=== PATIENT | female | born 1955 | race Caucasian/White ===

== ENCOUNTER 2023-12-11 13:43 | Emergency (ER) | payer OTHER ==
[~2023-12-11] VITALS: Ht 167.6 cm; Wt 68.0 kg
[2023-12-11 13:51] VITALS: BP 110/61; PULSE 86; RESP 18; TEMP 98.5; O2SAT 95
[2023-12-11 15:58] LABS: BASOPHILS # (AUTO) 0.1 K/uL (0.00-0.22); BASOPHILS % (AUTO) 0.6 % (0.0-2.0); EOSINOPHILS # (AUTO) 0.2 K/uL (0-0.4); EOSINOPHILS % (AUTO) 2.3 % (0.0-4.0); HEMATOCRIT 29.8 % (36-48); HEMOGLOBIN 10.1 g/dL (12.0-16.0); LYMPHOCYTES # (AUTO) 2.1 K/uL (2.5-16.5); MEAN CORPUSCULAR HEMOGLOBIN 32 pg (27-31); MEAN CORPUSCULAR HGB CONC 34 g/dL (33-37); MEAN CORPUSCULAR VOLUME 93.5 fL (80-94); MONOCYTES # (AUTO) 1.5 K/uL (0.8-1.0); MONOCYTES % (AUTO) 14.9 % (1.7-9.3); NEUTROPHILS # (AUTO) 6.2 K/uL (1.8-7.7); NEUTROPHILS % (AUTO) 61.2 % (42.2-75.2); PLATELET COUNT (AUTO) 247 K/uL (140-450); RED BLOOD CELL COUNT(AUTO) 3.19 MIL/uL (4.20-5.40); RED CELL DISTRIBUTION WIDTH 16.1 % (11.6-13.7); WHITE BLOOD COUNT (AUTO) 10.1 K/uL (4.8-10.8)
[2023-12-11 16:07] LABS: ANION GAP 12.6 (8-16); CALCIUM 8.8 mg/dL (8.5-10.1); CARBON DIOXIDE 22.2 mmol/L (21-32); CREATININE 1.2 mg/dL (0.6-1.3); POTASSIUM 3.8 mmol/L (3.5-5.1)
[2023-12-11 16:09] LABS: INR 1.01 (0.8-1.2); PARTIAL THROMBOPLASTIN TIME 31.5 secs (22-35.6); PROTHROMBIN TIME 10.6 secs (10.8-13.4)
[2023-12-11 16:12] LABS: BILIRUBIN,DIRECT 0.3 mg/dL (0.0-0.3); TOTAL BILIRUBIN 0.8 mg/dL (0.0-1.0); TOTAL PROTEIN, SERUM 6.6 g/dL (6.4-8.2)
[2023-12-11 16:15] LABS: LACTIC ACID 0.7 mmol/L (0.4-2.0)
[2023-12-11] MEDS: NACL 0.9% 1,000 ML IV ONE (17:41)
[2023-12-11] MEDS: KETOROLAC 30 MG/ML VIAL IVP ONE (17:41)
[2023-12-11] MEDS ORDERED: BACITRACIN OINT 500 UNITS/GM PKT TP ONE ×2 (19:28→19:35)
[2023-12-11 19:48] VITALS: BP 110/61; PULSE 76; RESP 18; TEMP 98.5; O2SAT 95
== END 2023-12-11 19:48 | disposition home or self-care (01) ==
LOC: MED 13:43
DX: L97.429 Non-pressure chronic ulcer of left heel and midfoot with unspecified severity (principal); N28.9 Disorder of kidney and ureter, unspecified; E87.1 Hypo-osmolality and hyponatremia; D64.9 Anemia, unspecified; E86.0 Dehydration; G89.29 Other chronic pain; F17.200 Nicotine dependence, unspecified, uncomplicated; Z98.890 Other specified postprocedural states
CPT/HCPCS: 36415; 71045; 73630; 80048; 80076; 83605; 85025; 85610; 85730; 87040; 90471; 90715; 93005; 96361; 96374; 99285; J1885; J7030